=== PATIENT | male | born 1975 | race Caucasian/White ===

== ENCOUNTER 2021-05-16 08:00 | Inpatient (IN) | payer OTHER ==
[2021-05-16] MEDS ORDERED: ACETAMINOPHEN 325 MG TABLET ONE (08:24)
[2021-05-16 09:16] LABS: SARS-COV-2 RT PCR NEGATIVE (NEGATIVE)
--- NOTE | 2021-05-16 09:39 | RAD REPORT ---
EXAM DESCRIPTION: RAD - Chest Single View - 05/16/2021 9:26 am CLINICAL HISTORY: COUGH COMPARISON: None TECHNIQUE: AP portable chest image was obtained 05/16/2021 9:26 am . FINDINGS: Prominent airspace opacification is present in the lower left lung field without obscuring the left hemidiaphragm or left heart border. Trachea remains in the midline. Right lung field is raul ar. Heart and vasculature are normal. No measurable pleural effusion and no pneumothorax. No acute evert ny abnormality seen. No acute aortic findings suspected. IMPRESSION: Moderate-sized left lower lobe pneumonia.
[2021-05-16] MEDS ORDERED: NA CHLORIDE 0.9% 1,000 ML ONE (09:45)
[2021-05-16] MEDS ORDERED: Levofloxacin500mg IV 500 MG/100 ML BAG IV ONE (09:45)
[2021-05-16 10:00] LABS: Absolute Lymphocytes (CBC) 1.1 K/uL (0.7-4.9); Hematocrit 35.6 % (39.6-49.0); Lymphocytes % 4.1 % (15.3-44.8); MPV 7.7 fL (7.6-11.3); RBC Red Blood Cell Count 4.33 M/uL (4.33-5.43)
[2021-05-16 10:14] LABS: BUN Blood Urea Nitrogen 10 mg/dL (7-18); Bicarbonate 26 mmol/L (21-32); Glucose Level 136 mg/dL (74-106); Potassium 3.5 mmol/L (3.5-5.1); Sodium Level 137 mmol/L (136-145)
[2021-05-16 10:49] LABS: Blood Morphology Comment NOT SEEN (NOT SEEN); Platelet Estimate INCR
--- NOTE | 2021-05-16 10:54 | ER ---
Nurse's Notes [facility] Name: Tuan Toure Age: 45 yrs Sex: Male : 1975 Arrival Date: 05/16/2021 Time: 08:05 Bed 5 Private MD: Diagnosis: Pneumonia, unspecified organism Presentation: 05/16 08:13 Chief complaint: Patient states: Body aches, fever, sore throat, SOB, fatigue, abd ll1 pain, N/V/D for 8 days. Coronavirus screen: Vaccine status: Patient reports receiving the 1st dose of the Covid vaccine. Client denies travel out of the [place] in the last 14 days. chills, diarrhea, difficulty breathing, fatigue, fever, headache, muscle pain, nausea, shortness of breath, sore throat, Client presents with at least one sign or symptom that may indicate coronavirus-19. Standard/surgical mask placed on the client. Ebola Screen: Patient denies travel to an Ebola-affected area in the 21 days before illness onset. Initial Sepsis Screen: Does the patient meet any 2 criteria? HR > 90 bpm. No. Patient's initial sepsis screen is negative. Does the patient have a suspected source of infection? Yes: Productive cough/pneumonia. Risk Assessment: Do you want to hurt yourself or someone else? Patient reports no desire to harm self or others. Onset of symptoms was May 08, 2021. 08:13 Method Of Arrival: Ambulatory 1 08:13 Acuity: LEILANI 3 ll1 Triage Assessment: 08:15 General: Appears ill, Behavior is calm, cooperative, appropriate for age. Pain: ll1 Complains of pain in body Pain currently is 8 out of 10 on a pain scale. Quality of pain is described as aching. EENT: Reports nasal congestion. Neuro: No deficits noted. Cardiovascular: No deficits noted. Respiratory: Reports shortness of breath. GI: Reports diarrhea, nausea, vomiting. Musculoskeletal: Reports pain in body aches. Historical: - Allergies: 08:12 PENICILLINS; ll1 - PMHx: 08:12 Hypercholesterolemia; ll1 - PSHx: 08:12 None; ll1 - Immunization history:: Client reports receiving the 1st dose of the Covid vaccine. - Social history:: Smoking status: Patient reports the use of cigarette tobacco products, smokes one-half pack cigarettes per day. Screenin:18 Abuse screen: Denies threats or abuse. Nutritional screening: No deficits noted. jh6 Tuberculosis screening: No symptoms or risk factors identified. Fall Risk None identified. Assessment: 08:13 General: Appears uncomfortable, Behavior is calm, cooperative. Pain: Complains of pain jh6 in left subscapular area Pain currently is 6 out of 10 on a pain scale. Quality of pain is described as sharp, Pain began 8 DAYS AGO. Respiratory: Reports shortness of breath cough that is non-productive, pain with cough pain with movement pain with respiration Airway is patent Trachea midline Respiratory effort is even, unlabored, Respiratory pattern is regular, symmetrical, Breath sounds are coarse in left posterior lower lobe. 09:54 Reassessment: Patient appears in no apparent distress at this time. No changes from vg1 previously documented assessment. Patient and/or family updated on plan of care and expected duration. Pain level reassessed. Patient is alert, oriented x 3, equal unlabored respirations, skin warm/dry/pink. 11:00 Reassessment: Patient and/or family updated on plan of care and expected duration. Pain jh6 level reassessed. Patient is alert, oriented x 3, equal unlabored respirations, skin warm/dry/pink. Patient states feeling better. 11:00 General: Appears in no apparent distress. Behavior is calm, cooperative. jh6 13:00 Reassessment: Patient and/or family updated on plan of care and expected duration. Pain jh6 level reassessed. Patient is alert, oriented x 3, equal unlabored respirations, skin warm/dry/pink. Patient denies pain at this time. Patient states feeling better. 13:00 Respiratory: Airway is patent Respiratory effort is even, unlabored. jh6 Vital Signs: 08:13 BP 106 / 46; Pulse 117; Resp 18; Temp 99.0(O); Pulse Ox 100% ; Weight 92.99 kg; Height ll1 6 ft. 2 in. (187.96 cm); Pain 8/10; 09:00 BP 119 / 75; Pulse 106; Resp 20; Pulse Ox 98% ; vg1 09:53 Temp 99.0; vg1 09:54 Temp 99.0(O); vg1 11:00 BP 128 / 80; Pulse 99; Resp 18; Temp 99.3(O); Pulse Ox 99% ; Pain 2/10; jh6 12:00 BP 122 / 72; Pulse 112; Resp 20; Temp 98.9(O); Pulse Ox 97% ; jh6 14:00 BP 106 / 58; Pulse 96; Resp 20; Temp 98.6(O); Pulse Ox 98% ; Pain 0/10; jh6 08:13 Body Mass Index 26.32 (92.99 kg, 187.96 cm) ll1 ED Course: 08:05 Patient arrived in ED. mr 08:07 Anthony Lozoya MD is Attending Physician. sp3 08:12 Arm band placed on Patient placed in an exam room, on a stretcher. ll1 08:12 Patient has correct armband on for positive identification. Bed in low position. Call vg1 light in reach. Side rails up X 1. 08:13 Emperatriz Henry, TEVIN is Primary Nurse. jh6 08:15 Triage completed. ll1 08:16 No provider procedures requiring assistance completed. jh6 09:26 CXR XRAY In Process Unspecified. EDMS 10:53 Don Moore MD is Hospitalizing Provider. sp3 14:43 Patient admitted, IV remains in place. vg1 Administered Medications: 08:25 Drug: Tylenol 650 mg Route: PO; jh6 09:53 Follow up: Temp 99.0 vg1 09:49 Drug: NS 0.9% 1000 ml Route: IV; Rate: 1 bolus; Site: right antecubital; vg1 11:44 Follow up: IV Status: Completed infusion; IV Intake: 1000ml vg1 14:40 Follow up: Response: No adverse reaction jh6 09:50 Drug: LevaQUIN (levofloxacin) 500 mg Volume: 100 ml; Route: IVPB; Infused Over: 60 vg1 mins; Site: right antecubital; 14:30 Follow up: Response: No adverse reaction jh6 11:44 Drug: Ibuprofen 800 mg Route: PO; vg1 Intake: 11:44 IV: 1000ml; Total: 1000ml. vg1 Outcome: 10:53 Decision to Hospitalize by Provider. sp3 14:39 Admitted to Tele accompanied by tech, via stretcher, with oxygen. jh6 14:39 Condition: good 14:39 Discharge instructions given to patient, Instructed on the need for admit. 15:06 Patient left the ED. jh6 Signatures: Dispatcher [employer] EDSD Royal, Michelle VazquezMamta, RN RN vg1 Sumeet Holloway RN RN ll1 Anthony Lozoya MD MD sp3 Emperatriz Henry RN RN jh6
--- NOTE | 2021-05-16 10:54 | EDPHYS ---
Physician Documentation [facility] Name: Tuan Toure Age: 45 yrs Sex: Male : 1975 Arrival Date: 05/16/2021 Time: 08:05 Bed 5 Private MD: ED Physician Anthony Lozoya HPI: 05/16 08:23 This 45 yrs old Male presents to ER via Ambulatory with complaints of Flu Symptoms. sp3 08:23 5-year-old male with history of hyperlipidemia presents with a 9-day onset of body sp3 aches, episodic fever, generalized malaise, and cough. Patient states that he went and got a COVID-19 test yesterday but does not yet have the results. He also had an episode of losing taste and smell but has since somewhat resolved. Patient presents today because he states that he is not improving. On review of systems, patient denies headache, neck pain, shortness of breath, chest pain, abdominal pain, nausea, vomiting, diarrhea, rash, syncope, neuro symptoms, or any other symptoms at this time.. Historical: - Allergies: 08:12 PENICILLINS; ll1 - PMHx: 08:12 Hypercholesterolemia; ll1 - PSHx: 08:12 None; ll1 - Immunization history:: Client reports receiving the 1st dose of the Covid vaccine. - Social history:: Smoking status: Patient reports the use of cigarette tobacco products, smokes one-half pack cigarettes per day. ROS: 08:27 Eyes: Negative for injury, pain, redness, and discharge, Neck: Negative for injury, sp3 pain, and swelling, Cardiovascular: Negative for chest pain, palpitations, and edema, Abdomen/GI: Negative for abdominal pain, nausea, vomiting, diarrhea, and constipation, Back: Negative for injury and pain, MS/Extremity: Negative for injury and deformity, Skin: Negative for injury, rash, and discoloration, Neuro: Negative for headache, weakness, numbness, tingling, and seizure, Psych: Negative for depression, anxiety, suicide ideation, homicidal ideation, and hallucinations, Allergy/Immunology: Negative for hives, rash, and allergies, Endocrine: Negative for neck swelling, polydipsia, polyuria, polyphagia, and marked weight changes, Hematologic/Lymphatic: Negative for swollen nodes, abnormal bleeding, and unusual bruising. 08:27 All other systems are negative. Exam: 08:27 Constitutional: This is a well developed, well nourished patient who is awake, alert, sp3 and in no acute distress. Head/Face: Normocephalic, atraumatic. Eyes: Pupils equal round and reactive to light, extra-ocular motions intact. Lids and lashes normal. Conjunctiva and sclera are non-icteric and not injected. Cornea within normal limits. Periorbital areas with no swelling, redness, or edema. ENT: Nares patent. No nasal discharge, no septal abnormalities noted. External auditory canals are clear. Oropharynx with no redness, swelling, or masses, exudates, or evidence of obstruction, uvula midline. Mucous membranes moist. Neck: Trachea midline, no thyromegaly or masses palpated, and no cervical lymphadenopathy. Supple, full range of motion without nuchal rigidity, or vertebral point tenderness. No Meningismus. Chest/axilla: Normal chest wall appearance and motion. Nontender with no deformity. No lesions are appreciated. Cardiovascular: Regular rate and rhythm with a normal S1 and S2. No gallops, murmurs, or rubs. Normal PMI, no JVD. No pulse deficits. Abdomen/GI: Soft, non-tender, with normal bowel sounds. No distension or tympany. No guarding or rebound. No evidence of tenderness throughout. Back: No spinal tenderness. No costovertebral tenderness. Full range of motion. Skin: Warm, dry with normal turgor. Normal color with no rashes, no lesions, and no evidence of cellulitis. MS/ Extremity: Pulses equal, no cyanosis. Neurovascular intact. Full, normal range of motion. Neuro: Awake and alert, GCS 15, oriented to person, place, time, and situation. Cranial nerves II-XII grossly intact. Motor strength 5/5 in all extremities. Sensory grossly intact. Cerebellar exam normal. Normal gait. Psych: Awake, alert, with orientation to person, place and time. Behavior, mood, and affect are within normal limits. 08:27 Respiratory: Normal respiratory effort without signs of respiratory distress. Rales are present in the left lower base.. Vital Signs: 08:13 BP 106 / 46; Pulse 117; Resp 18; Temp 99.0(O); Pulse Ox 100% ; Weight 92.99 kg; Height ll1 6 ft. 2 in. (187.96 cm); Pain 8/10; 09:00 BP 119 / 75; Pulse 106; Resp 20; Pulse Ox 98% ; vg1 09:53 Temp 99.0; vg1 09:54 Temp 99.0(O); vg1 11:00 BP 128 / 80; Pulse 99; Resp 18; Temp 99.3(O); Pulse Ox 99% ; Pain 2/10; jh6 12:00 BP 122 / 72; Pulse 112; Resp 20; Temp 98.9(O); Pulse Ox 97% ; jh6 14:00 BP 106 / 58; Pulse 96; Resp 20; Temp 98.6(O); Pulse Ox 98% ; Pain 0/10; jh6 08:13 Body Mass Index 26.32 (92.99 kg, 187.96 cm) ll1 MDM: 08:14 Patient medically screened. sp3 08:28 Data reviewed: vital signs, nurses notes. ED course: 45-year-old male who likely has sp3 COVID-19 in late stages based on clinical history including loss of taste and smell. Will evaluate for hyper inflammatory syndrome and test him for Covid and influenza as well as obtain a chest x-ray. Vital signs are normal and patient is in no distress at this time.. 10:51 ED course: Patient has 27,000 white count is still tachycardic. Due to extensive left sp3 lower lobe pneumonia will place in observation for community-acquired pneumonia and IV fluids and Levaquin IV.. 05/16 08:19 Order name: COVID-19/FLU A+B (Document "Date of Onset" if Symptomatic); Complete Time: sp3 09:35 05/16 09:37 Order name: Basic Metabolic Panel; Complete Time: 10:16 sp3 05/16 09:37 Order name: CBC with Diff sp3 05/16 10:08 Order name: Manual Differential EDMS 05/16 14:08 Order name: Comprehensive Metabolic Panel EDMS 05/16 14:08 Order name: Magnesium EDMS 05/16 08:19 Order name: CXR XRAY; Complete Time: 10:16 sp3 05/16 14:08 Order name: Phosphorus EDMS 05/16 14:08 Order name: CBC with Automated Diff EDMS 05/16 14:08 Order name: CBC with Automated Diff EDMS 05/16 14:08 Order name: Lipid Profile EDMS 05/16 14:08 Order name: Lipid Profile EDW[facility] 05/16 14:08 Order name: NT PRO-BNP EDMS 05/16 14:08 Order name: NT PRO-BNP EDWY 05/16 09:37 Order name: IV Saline Lock; Complete Time: 09:53 sp3 05/16 09:37 Order name: Labs collected and sent; Complete Time: 09:53 sp3 05/16 14:08 Order name: Chest Angio EDMS 05/16 14:08 Order name: Chest Angio EDMS 05/16 14:08 Order name: CONS Physician Consult EDW[facility] 05/16 14:08 Order name: Heart Healthy EDWY Administered Medications: 08:25 Drug: Tylenol 650 mg Route: PO; 6 09:53 Follow up: Temp 99.0 vg1 09:49 Drug: NS 0.9% 1000 ml Route: IV; Rate: 1 bolus; Site: right antecubital; vg1 11:44 Follow up: IV Status: Completed infusion; IV Intake: 1000ml vg1 14:40 Follow up: Response: No adverse reaction [facility] 09:50 Drug: LevaQUIN (levofloxacin) 500 mg Volume: 100 ml; Route: IVPB; Infused Over: 60 vg1 mins; Site: right antecubital; 14:30 Follow up: Response: No adverse reaction [facility] 11:44 Drug: Ibuprofen 800 mg Route: PO; vg1 Disposition Summary: 05/16/21 10:53 Hospitalization Ordered Hospitalization Status: Observation sp3 Provider: Don Moore sp3 Location: Telemetry/[facility] (observation) sp3 Condition: Stable sp3 Problem: new sp3 Symptoms: have worsened sp3 Bed/Room Type: Standard sp3 Room Assignment: 217(05/16/21 14:20) bd Diagnosis - Pneumonia, unspecified organism sp3 Forms: - Medication Reconciliation Form sp3 - SBAR form sp3 Signatures: Dispatcher [employer] EDMS Es Newell Victoria RN RN vg1 Sumeet Holloway RN RN ll1 Anthony Lozoya MD MD sp3 Emperatriz Henry RN RN jh6 Corrections: (The following items were deleted from the chart) 14:20 10:53 sp3 bd
[2021-05-16] MEDS ORDERED: IBUPROFEN 400 MG TAB ONE (11:08)
[2021-05-16] MEDS ORDERED: ONDANSETRON 4 MG/2 ML VIAL IV PRN (13:56)
[2021-05-16] MEDS ORDERED: ACETAMINOPHEN 500 MG TAB PO PRN (13:56)
[2021-05-16] MEDS ORDERED: Levofloxacin 750mg IV 750 MG/150 ML BAG IV SCH (14:00)
--- NOTE | 2021-05-16 14:08 | P.HP ---
Certification for Inpatient Patient admitted to: Inpatient With expected LOS: >2 Midnights Patient will require the following post-hospital care: None Practitioner: I am a practitioner with admitting privileges, knowledge of patient current condition, hospital course, and medical plan of care. Services: Services provided to patient in accordance with Admission requirements found in Title 42 Section 412.3 of the Code of Federal Regulations Patient History Date of Service: 05/16/21 Reason for admission: Pneumonia History of Present Illness: Pt is a 45yo who was admitted to the hospital with left lower lobe pneumonia. He was thinking he had an upper respiratory infection. His clinical symptoms continue to worsen. He had a Covid test that was negative. However, he continued his clinical symptoms continue to worsen. He decided to come into the emergency room for further treatment. In the emergency room he had a chest x- ray which showed complete consolidation of the left lower lobe. Patient had a white count of 27,000. Patient was having a lot of pleuritic chest pain. He was admitted for further treatment. Allergies Penicillins Allergy (Verified 05/16/21 13:08) Hives/Rash Home Medications: NK [No Home Meds] 05/16/21 - Past Medical/Surgical History Past Medical History: Patient denies medical history Past Surgical History: Patient denies surgical history - Family History Father Medical History: Heart disease - Social History Smoking Status: Never smoker Alcohol use: No CD- Drugs: No Review of Systems 10-point ROS is otherwise unremarkable Physical Examination - Vital Signs Temperature: 101 F Blood Pressure: 140/70 Pulse: 88 Respirations: 18 Pulse Ox (%): 96 - Physical Exam General: Alert, In no apparent distress, Oriented x3 HEENT: Atraumatic, PERRLA, Mucous membr. moist/pink, EOMI, Sclerae nonicteric Neck: Supple, 2+ carotid pulse no bruit, No LAD, Without JVD or thyroid abnormality Respiratory: Diminished, Rhonchi/gurgles Cardiovascular: Regular rate/rhythm, Normal S1 S2 Gastrointestinal: Normal bowel sounds, No tenderness Musculoskeletal: No tenderness Integumentary: No rashes Neurological: Normal gait, Normal speech, Normal strength at 5/5 x4 extr, Normal tone, Normal affect Lymphatics: No axilla or inguinal lymphadenopathy - Studies Laboratory Data (last 24 hrs) 05/16/21 09:49: WBC 27.10 H*, Hgb 11.5 L, Hct 35.6 L, Plt Count 425 H 05/16/21 09:49: Sodium 137, Potassium 3.5, BUN 10, Creatinine 0.79, Glucose 136 H Assessment & Plan - Problems (Diagnosis) (1) Consolidation of left lower lobe of lung Current Visit: Yes Status: Acute (2) Bacterial pneumonia Current Visit: Yes Status: Acute - Plan Plan: 1. Continue with IV antibiotics 2. Awaiting sputum and blood culture 3. Repeat chest x-ray 4. CT scan of the chest if pneumonia is not improving- 5. Appreciate pulmonary consultation 6. Continue with nebs as needed 7. O2 per protocol 8. Continue with gentle hydration 9. Repeat labs including CBC and renal function in a.m. 10. GI and DVT prophylaxis Discharge Plan: Home Plan to discharge in: Greater than 2 days - Advance Directives Does patient have a Living Will: No Does patient have a Durable POA for Healthcare: No - Code Status/Comfort Care Code Status Assessed: Yes Code Status: Full Code Critical Care: No Time Spent Managing PTS Care (In Minutes): 45
[2021-05-16] MEDS: IPRATROPIUM BROM 0.5MG/2.5ML NEB SCH ×2 (15:06→19:45)
[2021-05-16] MEDS: ALBUTEROL 2.5 MG/3 ML NEB SOL NEB SCH ×2 (15:06→19:45)
[2021-05-16 15:49] VITALS: BMI 26.3
[2021-05-16] MEDS: NA CHLORIDE 0.9% 1,000 ML IV SCH (16:02)
[2021-05-16] MEDS ORDERED: VANCOMYCIN 2.25 GM in NA CHLORIDE 0.9% 500 ML IVPB ONE (17:00)
[2021-05-16] MEDS ORDERED: PNEUMOCOCCAL VACCINE 0.5 ML IMVAC ONE (18:00)
[2021-05-16] MEDS ORDERED: VANCOMYCIN 1.25 GM in NA CHLORIDE 0.9% 250 ML IVPB SCH (21:00)
[2021-05-16] MEDS: HYDROCODONE/CHLORPHEN 5 ML/OSYR PO PRN (21:53)
[2021-05-17 01:08] LABS: Urine Appearance CLOUDY (Clear); Urine Bilirubin NEGATIVE (Negative); Urine Blood NEGATIVE (Negative); Urine Color DK YELLOW (Yellow); Urine Glucose NEGATIVE (Negative); Urine Protein 1+ (Negative); Urine Urobilinogen >=8.0 mg/dL (0.2-1.0); Urine pH 6.5 (5.0-7.0)
[2021-05-17] MEDS: ALBUTEROL 2.5 MG/3 ML NEB SOL NEB SCH ×2 (01:10→08:43)
[2021-05-17] MEDS: IPRATROPIUM BROM 0.5MG/2.5ML NEB SCH ×4 (01:10→19:35)
[2021-05-17 01:37] LABS: Urine Microscopic Reflex ORDER UMIC
[2021-05-17 02:02] LABS: Urine Bacteria 20-50 /HPF (NONE SEEN); Urine Coarse Granular Casts 0-5 /LPF (NONE SEEN); Urine RBC <5 /HPF (NONE SEEN)
[2021-05-17] MEDS: NA CHLORIDE 0.9% 1,000 ML IV SCH ×2 (03:20→13:56)
[2021-05-17 04:23] LABS: Absolute Lymphocytes (CBC) 1.8 K/uL (0.7-4.9); Hematocrit 30.5 % (39.6-49.0); Lymphocytes % 11.1 % (15.3-44.8); RBC Red Blood Cell Count 3.72 M/uL (4.33-5.43)
[2021-05-17] MEDS ORDERED: VANCOMYCIN 1.5 GM in NA CHLORIDE 0.9% 500 ML IVPB SCH (05:00)
[2021-05-17 06:13] LABS: ALT/SGPT 52 U/L (12-78); AST/SGOT 21 U/L (15-37); Albumin 1.9 g/dL (3.4-5.0); Alkaline Phosphatase 128 U/L (45-117); BUN Blood Urea Nitrogen 6 mg/dL (7-18); Bicarbonate 25 mmol/L (21-32); Bilirubin Total 0.4 mg/dL (0.2-1.0); Glucose Level 96 mg/dL (74-106); HDL Cholesterol 13 mg/dL (40-60); LDL Cholesterol, Calculated 63 (<130); Magnesium 2.2 mg/dL (1.8-2.4); NT PRO-BNP 555 pg/mL (<125); Phosphorus 2.9 mg/dL (2.5-4.9); Potassium 3.6 mmol/L (3.5-5.1); Protein, Total 6.1 g/dL (6.4-8.2); Sodium Level 138 mmol/L (136-145)
--- NOTE | 2021-05-17 08:42 | RAD REPORT ---
EXAM DESCRIPTION: CT - Chest Angio - 05/17/2021 8:20 am CLINICAL HISTORY: Pneumonia COMPARISON: None. Portable chest May 16 TECHNIQUE: Dynamically enhanced 3 mm thick images of the chest were obtained during administration o f approximately 150mL Isovue 370 IV contrast. Sagittal and coronal reconstruction images were generat ed using MIP and reviewed. Exam utilizes a protocol to evaluate the aorta. All CT scans are performed using dose optimization technique as appropriate and may include automated exposure control or mA/KV adjustment according to patient size. FINDINGS: Aorta is normal in diameter with no dissection or other acute aortic findings. Reconstruct ion images show no significant findings. Pulmonary arteries are not optimally opacified on this CT angio chest examination. Opacification is s ufficient to exclude saddle embolus or pulmonary emboli in the right and left pulmonary arteries and the proximal portions of the lobar pulmonary arteries. No cardiomegaly, pericardial thickening or pericardial effusion. Extensive airspace consolidation of the left lower lobe is present filling all but the superior segme nt. Air bronchograms are present. Trace amount of fluid is present in the pleural space at the base. A mass or cavitation within the lung parenchyma not identified. Left upper lobe in the right lung fie ld are clear of any acute finding. No endobronchial lesions are identifiable. No pleural based mass o r pneumothorax. Small nonspecific reactive type mediastinal and left hilar lymph nodes are present. No chest wall mas s or abnormal axillary lymphadenopathy. Mild left-sided gynecomastia evident. IMPRESSION: Negative CT scan of the thoracic aorta. Large pneumonia filling all of the left lower lobe except for the superior segment. Within the area o f consolidation no mass or cavitation identified. Requested examination was a CT angio of the chest. This optimally visualized the aorta and not the pu lmonary arterial tree. Large central pulmonary artery are clear but segmental and subsegmental branch emboli cannot excluded. A repeat CT chest examination could be performed as a PE study if there is concern for segmental or s ubsegmental branch pulmonary emboli.
[2021-05-17] MEDS: ENOXAPARIN 40 MG/0.4 ML SQ SCH (09:37)
[2021-05-17] MEDS ORDERED: ALBUTEROL 2.5 MG/3 ML NEB SOL NEB PRN (12:35)
--- NOTE | 2021-05-17 12:36 | P.CNS ---
Date of Consult: 05/17/21 Reason for Consult: Left lower lobe pneumonia Chief Complaint: Pneumonia History of Present Illness: Patient is 45 years of age admitted with acute onset of fever chills rigors left-sided chest discomfort has a large consolidation in the left lower lobe consistent with acute left lower lobe pneumonia Allergies Penicillins Allergy (Verified 05/16/21 13:08) Hives/Rash Home Medications: NK [No Home Meds] 05/16/21 - Past Medical/Surgical History Diabetic: No -: hyperlipidemia -: turmor removed from RT knee and shoulder - Family History Father Medical History: Heart disease - Social History Smoking Status: Current every day smoker Alcohol use: No CD- Drugs: No Caffeine use: Yes Place of Residence: Home Review of Systems General: Weakness Respiratory: Cough, Shortness of Breath Cardiovascular: Chest Pain Physical Examination Temp Pulse Resp BP Pulse Ox 97.9 F 95 H 18 118/62 97 05/17/21 08:00 05/17/21 08:00 05/17/21 08:00 05/17/21 08:00 05/17/21 08:00 General: Alert, Oriented x3 HEENT: Atraumatic Neck: Supple Respiratory: Other (Patient has bronchial breathing crackles on the left base) Cardiovascular: No edema, Regular rate/rhythm - Problems (1) Pneumonia Current Visit: Yes Status: Acute Plan: Patient is 45 years of age admitted with acute left lower lobe pneumonia most likely pneumococcal DC vancomycin patient is not at risk for resistant organism hemodynamically 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 daily for 7 days saturations satisfactory Qualifiers: Aspiration pneumonia type: unspecified Laterality: left
[2021-05-17] MEDS ORDERED: METHYLPREDNISOLONE 125 MG INJ IV ONE (13:16)
[2021-05-17] MEDS: HYDROCODONE/CHLORPHEN 5 ML/OSYR PO PRN (13:53)
[2021-05-17] MEDS: levoFLOXacin 750 MG TAB PO SCH (13:57)
[2021-05-17] MEDS: VANCOMYCIN 1.5 GM in NA CHLORIDE 0.9% 500 ML IVPB SCH (17:26)
[2021-05-17] MEDS ORDERED: VANCOMYCIN 1.75 GM in NA CHLORIDE 0.9% 500 ML IVPB SCH (21:00)
--- NOTE | 2021-05-17 21:31 | P.PN ---
Subjective Date of Service: 05/17/21 Patient is clinically doing well with no new complaints. Patient still having some pleuritic chest pain. Continue with IV antibiotic therapy. CT scan shows complete consolidation of the left lower lobe. No signs of a postobstructive process. Review of Systems 10-point ROS is otherwise unremarkable Physical Examination - Vital Signs Temperature: 101 F Blood Pressure: 140/70 Pulse: 88 Respirations: 18 Pulse Ox (%): 96 - Physical Exam General: Alert, In no apparent distress, Oriented x3 HEENT: Atraumatic, PERRLA, EOMI Neck: Supple, JVD not distended Respiratory: Diminished, Rhonchi/gurgles Cardiovascular: Regular rate/rhythm, Normal S1 S2, No murmurs Gastrointestinal: Normal bowel sounds, Soft and benign, Non-distended, No tenderness Musculoskeletal: No tenderness Integumentary: No rashes Neurological: Normal speech, Normal tone, Normal affect Lymphatics: No axilla or inguinal lymphadenopathy - Studies Medications List Reviewed: Yes Assessment & Plan - Problems (Diagnosis) (1) Consolidation of left lower lobe of lung Current Visit: Yes Status: Acute (2) Bacterial pneumonia Current Visit: Yes Status: Acute - Plan Plan: Continue with plan of care as mentioned below: 1. Continue with IV antibiotics 2. Awaiting sputum and blood culture 3. Repeat chest x-ray 4. CT scan of the chest if pneumonia is not improving- 5. Appreciate pulmonary consultation 6. Continue with nebs as needed 7. O2 per protocol 8. Continue with gentle hydration 9. Repeat labs including CBC and renal function in a.m. 10. GI and DVT prophylaxis Discharge Plan: Home Plan to discharge in: Greater than 2 days - Advance Directives Does patient have a Living Will: No Does patient have a Durable POA for Healthcare: No - Code Status/Comfort Care Code Status: Full Code Critical Care: No Time Spent Managing PTS Care (In Minutes): 35
[2021-05-18] MEDS: IPRATROPIUM BROM 0.5MG/2.5ML NEB SCH ×2 (01:50→08:31)
[2021-05-18 04:23] LABS: Hematocrit 32.3 % (39.6-49.0); Lymphocytes % 10.1 % (15.3-44.8); MPV 7.9 fL (7.6-11.3); RBC Red Blood Cell Count 3.94 M/uL (4.33-5.43)
[2021-05-18 04:30] LABS: BUN Blood Urea Nitrogen 9 mg/dL (7-18); Bicarbonate 28 mmol/L (21-32); Glucose Level 163 mg/dL (74-106); Magnesium 2.6 mg/dL (1.8-2.4); NT PRO-BNP 858 pg/mL (<125); Potassium 4.7 mmol/L (3.5-5.1); Sodium Level 141 mmol/L (136-145)
[2021-05-18] MEDS: VANCOMYCIN 1.5 GM in NA CHLORIDE 0.9% 500 ML IVPB SCH (05:28)
[2021-05-18] MEDS: NA CHLORIDE 0.9% 1,000 ML IV SCH (05:48)
--- NOTE | 2021-05-18 07:52 | RAD REPORT ---
EXAM DESCRIPTION: RAD - Chest Single View - 05/18/2021 6:20 am CLINICAL HISTORY: pneumonia COMPARISON: CT chest May 17, portable chest May 16 TECHNIQUE: AP portable chest image was obtained 05/18/2021 6:20 am . FINDINGS: Lung volumes are low. Left base consolidation shows no significant change. Remaining lung jeronimo are clear. Heart and vasculature are normal. No measurable pleural effusion and no pneumothora x. No acute bony abnormality seen. No acute aortic findings suspected. IMPRESSION: No significant change to the consolidated left lower lobe pneumonia. No new or progressive finding.
[2021-05-18] MEDS: ENOXAPARIN 40 MG/0.4 ML SQ SCH ×2 (09:00→09:13)
[2021-05-18 09:11] VITALS: O2SAT 95
[2021-05-18] MEDS: levoFLOXacin 750 MG TAB PO SCH (09:12)
[2021-05-18] MEDS: HYDROCODONE/CHLORPHEN 5 ML/OSYR PO PRN (10:14)
[2021-05-18 10:29] VITALS: BP 108/79; TEMP 98
--- NOTE | 2021-05-22 03:07 | P.DS ---
Discharge Date: 05/18/21 Disposition: ROUTINE DISCHARGE Discharge Condition: GOOD Reason for Admission: Pneumonia - Problems (1) Consolidation of left lower lobe of lung Status: Acute (2) Bacterial pneumonia Status: Acute Brief History of Present Illness: Pt is a 45yo who was admitted to the hospital with left lower lobe pneumonia. He was thinking he had an upper respiratory infection. His clinical symptoms continue to worsen. He had a Covid test that was negative. However, he continued his clinical symptoms continue to worsen. He decided to come into the emergency room for further treatment. In the emergency room he had a chest x- ray which showed complete consolidation of the left lower lobe. Patient had a white count of 27,000. Patient was having a lot of pleuritic chest pain. He was admitted for further treatment. Hospital Course: Patient clinically doing well with no new complaints. Patient was treated with antibiotics and his clinical symptoms are better. At this time, patient is stable for discharge home. Continue with antibiotic therapy as an outpatient. Vital Signs/Physical Exam: Temp Pulse Resp BP Pulse Ox 98 F 84 18 108/79 96 05/18/21 08:00 05/18/21 08:00 05/18/21 08:00 05/18/21 08:00 05/18/21 08:00 General: Alert, In no apparent distress, Oriented x3 Respiratory: Clear to auscultation bilaterally Laboratory Data at Discharge: WBC 10.00 K/uL (4.3-10.9) D 05/18/21 03:55 Hgb 10.8 g/dL (13.6-17.9) L 05/18/21 03:55 Hct 32.3 % (39.6-49.0) L 05/18/21 03:55 Plt Count 520 K/uL (152-406) H D 05/18/21 03:55 Sodium 141 mmol/L (136-145) 05/18/21 03:55 Potassium 4.7 mmol/L (3.5-5.1) 05/18/21 03:55 BUN 9 mg/dL (7-18) 05/18/21 03:55 Creatinine 0.57 mg/dL (0.55-1.3) 05/18/21 03:55 Glucose 163 mg/dL (74-106) H 05/18/21 03:55 Phosphorus 2.9 mg/dL (2.5-4.9) 05/17/21 03:58 Magnesium 2.6 mg/dL (1.8-2.4) H 05/18/21 03:55 Total Bilirubin 0.4 mg/dL (0.2-1.0) 05/17/21 03:58 AST 21 U/L (15-37) 05/17/21 03:58 ALT 52 U/L (12-78) 05/17/21 03:58 Alkaline Phosphatase 128 U/L (45-117) H 05/17/21 03:58 Triglycerides 99 mg/dL (<150) 05/17/21 03:58 Cholesterol 96 mg/dL (<200) 05/17/21 03:58 HDL Cholesterol 13 mg/dL (40-60) L 05/17/21 03:58 Cholesterol/HDL Ratio 7.38 05/17/21 03:58 Home Medications: levoFLOXacin [Levaquin*] 750 mg PO DAILY #5 tab 05/17/21 Hydrocodone/Chlorphen Polis [Tussionex Oral Susp] 5 ml PO Q12HR PRN #100 ml 05/18/21 predniSONE [Prednisone*] 20 mg PO DAILY #5 tab 05/18/21 New Medications: levoFLOXacin [Levaquin*] 750 mg PO DAILY #5 tab predniSONE [Prednisone*] 20 mg PO DAILY #5 tab Hydrocodone/Chlorphen Polis [Tussionex Oral Susp] 5 ml PO Q12HR PRN #100 ml PRN Reason: Cough Physician Discharge Instructions: -DC IV and DC home -Follow-up with PCP in 1 to 2 weeks -Follow-up with Cardiology in 1 to 2 weeks -Please call Dr. Moore at [phone] if any questions regarding hospital stay -Please call nursing station at [phone] if any nursing or medication questions -Return to the emergency room if symptoms worsen Diet: AHA Activity: Fall precautions Followup: NONE,NONE [Primary Care Provider] - Time spent managing pt's care (in minutes): 35
== END 2021-05-18 10:35 | disposition home or self-care (01) | DRG 871 ==
LOC: ER 08:00 → 2ND 13:58
PROVIDERS: ADMIT Hospitalist; ATTEND Hospitalist
DX: A41.9 Sepsis, unspecified organism (principal); J15.9 Unspecified bacterial pneumonia; F17.210 Nicotine dependence, cigarettes, uncomplicated; Z20.822 Contact with and (suspected) exposure to COVID-19; Z88.0 Allergy status to penicillin
CPT/HCPCS: 0240U; 36415; 71045; 71275; 80048; 80053; 80061; 80202; 81003; 81015; 83735; 83880; 84100; 84145; 85025; 87070; 87086; 87088; 87205; 94640; 94760; 96361; 96374; 99285; J1650; J2930; J3370; J7030; J7040; Q9967